=== PATIENT | male | born 1975 | race Caucasian/White ===

== ENCOUNTER 2024-01-01 06:31 | Emergency (ER) | payer BC, OTHER ==
[2024-01-01] MEDS ORDERED: Morphine 4 MG/ML VIAL ONE (07:40)
[2024-01-01 08:55] LABS: ALT (SGPT) 27 U/L (8-55); AST (SGOT) 20 U/L (5-34); Albumin 3.2 g/dL (3.5-5.0); Alkaline Phosphatase 51 U/L (40-110); Anion Gap 16 mmol/L (10-20); BUN (Urea Nitrogen) 22 mg/dL (8.9-20.6); Bilirubin, Total 0.4 mg/dL (0.2-1.2); Calc. Creatinine Clearance 0 mL/min (70-130); Calcium 8.3 mg/dL (7.8-10.44); Carbon Dioxide 20 mmol/L (22-29); Chloride 102 mmol/L (98-107); Estimated GFR 68; Globulin 3.2 g/dL (2.4-3.5); Glucose 104 mg/dL (70-105); Potassium 3.6 mmol/L (3.5-5.1); Protein, Total 6.4 g/dL (6.0-8.3); Sodium 134 mmol/L (136-145)
[2024-01-01 09:20] LABS: Hematocrit 40.2 % (38.8-50.0); Hemoglobin 13.5 g/dL (13.5-17.5); Mean Corpuscular HGB CONC 33.6 g/dL (32.0-36.0); Mean Corpuscular Hemoglobin 27.9 pg (27.0-33.0); Mean Corpuscular Volume 83.1 fL (81.2-95.1); Mean Platelet Volume 9.3 fL (7.4-10.4); Platelet Count 211 10x3/uL (150-450); Red Blood Cell (RBC) Count 4.84 10x6/uL (4.32-5.72); White Blood Cell (WBC) Count 7.4 10x3/uL (3.5-10.5)
[2024-01-01 09:21] LABS: MDiff Complete? YES
[2024-01-01 09:48] LABS: Eosinophils 1 % (0-10); Lymphocytes 18 % (21-51); Monocytes 5 % (0-10); Neutrophil 73 % (42-75); Reactive Lymphocytes 3 % (0-10)
[2024-01-01 09:49] LABS: RBC Morph Comment Within Normal Limits
[2024-01-01 09:50] LABS: Platelet Adequacy Comment Appears Adequate
[2024-01-01] MEDS ORDERED: Iopamidol 300 61% 100 ML VIAL FS ONE (12:26)
[2024-01-01 12:38] LABS: #Basophils 0.03 10x3/uL (0.0-0.2); #Eosinophils 0.01 10x3/uL (0.0-0.5); #Neutrophils 4.82 10x3/uL (1.5-8.4); %Basophils 0.4 % (0.0-2.0); %Eosinophils 0.1 % (0.0-6.0); %Lymphocytes 22.9 % (18.0-47.0); %Monocytes 9.6 % (0.0-10.0); %Neutrophils 66.4 % (40.0-75.0)
== END 2024-01-01 10:02 | disposition home or self-care (01) ==
LOC: CSHERS 06:31
DX: J03.90 Acute tonsillitis, unspecified (principal); Z55.6 Problems related to health literacy
CPT/HCPCS: 70491; 80053; 83605; 85025; 96374; J2272; Q9967